=== PATIENT | male | born 1990 | race Hispanic/Latino ===

== ENCOUNTER → 2021-01-19 | Day surgery (SDC) | payer BC ==
[~2021-01-19] MED LIST: EPINEPHrine 1 MG/ML AMP ONE; Gadobenate Dimeglumine 529 MG/1 ML (20ML VIAL) ONE; Iopamidol 300 61% 50 ML VIAL FS ONE; Lidocaine 1% PF 10 ML AMP ONE
== END ==
LOC: RAD 12-28 09:12
PROVIDERS: ATTEND Family Medicine
PROC: 3E0U3KZ Introduction of Other Diagnostic Substance into Joints, Percutaneous Approach (ICD-10-PCS; principal; 2021-01-19)
DX: S43.431A Superior glenoid labrum lesion of right shoulder, initial encounter (principal)
CPT/HCPCS: 23350; A9577; J0171; J2001; Q9967